=== PATIENT | male | born 1995 | race Two or more races ===

== ENCOUNTER 2018-08-10 11:45 | Emergency (ER) | payer OTHER ==
[2018-08-10 11:57] VITALS: BP 139/78
--- NOTE | 2018-08-10 11:57 | UC ---
Throat Pain/Nasal Maged HPI - HPI Summary HPI Summary: 22 yo male presents with sore throat and productive cough for the last 4-5 days. He says that he felt feverish one of the days, but did not take his temperature. He has not been taking anything OTC for his symptoms. He is traveling to [place] in a few days and is concerned that he will get others sick on the plane. Currently denies fever, chills, sinus symptoms, SOB, chest pain, n/v. - History of Current Complaint Stated Complaint: COUGH, AND SORE THROAT Time Seen by Provider: 08/10/18 11:57 Hx Obtained From: Patient Onset/Duration: Gradual Onset Severity: Moderate Pain Intensity: 7 Pain Scale Used: 0-10 Numeric - Allergies/Home Medications Allergies/Adverse Reactions: Allergies Allergy/AdvReac Type Severity Reaction Status Date / Time No Known Allergies Allergy Verified 08/10/18 11:57 PMH/Surg Hx/FS Hx/Imm Hx - Additional Past Medical History Additional PMH: None - Surgical History Surgical History: None - Family History Known Family History: Positive: None - Social History Occupation: Student Lives: With Family Alcohol Use: Occasionally Substance Use Type: None Smoking Status (MU): Never Smoked Tobacco Review of Systems All Other Systems Reviewed And Are Negative: Yes Constitutional: Positive: Negative Skin: Positive: Negative Eyes: Positive: Negative ENT: Positive: Sore Throat Respiratory: Positive: Cough Cardiovascular: Positive: Negative Gastrointestinal: Positive: Negative Neurovascular: Positive: Negative Neurological: Positive: Negative Psychological: Positive: Negative Physical Exam - Summary Physical Exam Summary: GENERAL: NAD. WDWN. No pain distress. SKIN: No rashes, sores, lesions, or open wounds. HEENT: Head: AT/NC Eyes: Conjunctiva clear without inflammation or discharge. Ears: Hearing grossly normal. TMs intact, no bulging, erythema, or edema. Nose: Nasal mucosa pink and moist. NTTP maxillary and frontal sinus. Throat: Posterior oropharynx mild erythema. No tonsillar enlargement. No exudates. Uvula midline. No hoarse voice or muffled voice. NECK: Supple. Nontender. No lymphadenopathy. CHEST: CTAB. No r/r/w. No accessory muscle use. Breathing comfortably and in no distress. CV: RRR. Without m/r/g. Pulses intact. Cap refill <2seconds NEURO: Alert. PSYCH: Age appropriate behavior. Triage Information Reviewed: Yes Vital Signs: Vital Signs: Temp Pulse Resp BP Pulse Ox 98 F 81 14 139/78 100 08/10/18 11:49 08/10/18 11:49 08/10/18 11:49 08/10/18 11:49 08/10/18 11:49 Vital Signs Reviewed: Yes Throat Pain/Nasal Course/Dx - Course Course Of Treatment: Pharyngitis. - Differential Dx/Diagnosis Provider Diagnoses: Pharyngitis. Cough Discharge - Sign-Out/Discharge Documenting (check all that apply): Patient Departure All imaging exams completed and their final reports reviewed: No Studies - Discharge Plan Condition: Stable Disposition: HOME Prescriptions: Azithromycin TAB* [Zithromax TAB (Z-MICHI) 250 mg #6 tabs] 2 tab PO .TODAY, THEN 1 DAILY #1 michi Patient Education Materials: Pharyngitis (ED) Referrals: Charlette Hendrickson MD [Primary Care Provider] - Additional Instructions: If you develop a fever, shortness of breath, chest pain, new or worsening symptoms - please call your PCP or go to the ED. Your blood pressure was mildly elevated at todays visit. Please see your primary provider within 4 weeks for recheck and re-evaluation. - Billing Disposition and Condition Condition: STABLE Disposition: Home
== END 2018-08-10 12:11 | disposition home or self-care (01) ==
LOC: UCEAST 11:45
DX: J02.9 Acute pharyngitis, unspecified (principal); R05 Cough
CPT/HCPCS: 99202; G0463

== ENCOUNTER 2018-09-09 23:28 | Emergency (ER) | payer OTHER ==
[2018-09-09] MEDS ORDERED: Ibuprofen TAB* 400 MG PO ONE (23:57)
--- NOTE | 2018-09-10 00:01 | ED ---
Lower Extremity - HPI Summary HPI Summary: This patient is a 22 year old male presenting to [facility] with a chief complaint of left toe injury since 1600 today. Patient states he stubbed his left 5th toe on a piece of furniture. The pain is rated 10/10 in severity. Symptoms aggravated by nothing. Symptoms alleviated by nothing. Patient has not put any ice on the toe. Patient denies any other medical problems. - History of Current Complaint Stated Complaint: LT SMALL TOE INJURY Hx Obtained From: Patient Mechanism Of Injury: Blunt Trauma Onset of Pain: Immediate Onset/Duration: Hours Pain Intensity: 10 Pain Scale Used: 0-10 Numeric Timing: Constant Location: Is Discrete @ - left 5th toe Aggravating Factor(s): Nothing Alleviating Factor(s): Nothing - Allergies/Home Medications Allergies/Adverse Reactions: Allergies Allergy/AdvReac Type Severity Reaction Status Date / Time No Known Allergies Allergy Verified 08/10/18 11:57 PMH/Surg Hx/FS Hx/Imm Hx Previously Healthy: Yes Opthamlomology History: Denies: Hx Legally Blind EENT History: Denies: Hx Deafness Infectious Disease History: No Infectious Disease History: Denies: Traveled Outside the [place] in Last 30 Days - Family History Known Family History: Positive: Hypertension - Social History Occupation: Student Alcohol Use: Occasionally Hx Substance Use: No Substance Use Type: Reports: None Hx Tobacco Use: No Smoking Status (MU): Never Smoked Tobacco Review of Systems Negative: Fever Positive: Other - left 5th toe injury All Other Systems Reviewed And Are Negative: Yes Physical Exam - Summary Physical Exam Summary: VITAL SIGNS: Reviewed. GENERAL: Patient is a well-developed and nourished male who is lying comfortable in the stretcher. Patient is not in any acute respiratory distress. HEAD AND FACE: No signs of trauma. No ecchymosis, hematomas or skull depressions. No sinus tenderness. EYES: PERRLA, EOMI x 2, No injected conjunctiva, no nystagmus. EARS: Hearing grossly intact. Ear canals and tympanic membranes are within normal limits. MOUTH: Oropharynx within normal limits. NECK: Supple, trachea is midline, no adenopathy, no JVD, no carotid bruit, no c- spine tenderness, neck with full ROM. CHEST: Symmetric, no tenderness at palpation LUNGS: Clear to auscultation bilaterally. No wheezing or crackles. CVS: Regular rate and rhythm, S1 and S2 present, no murmurs or gallops appreciated. ABDOMEN: Soft, non-tender. No signs of distention. No rebound no guarding, and no masses palpated. Bowel sounds are normal. EXTREMITIES: FROM in all major joints, Left 5th toe has ecchymosis, tenderness NEURO: Alert and oriented x 3. No acute neurological deficits. Speech is normal and follows commands. SKIN: Dry and warm Triage Information Reviewed: Yes Vital Signs On Initial Exam: Initial Vitals Temp Pulse Resp BP Pulse Ox 98.2 F 82 16 146/64 97 09/09/18 23:30 09/09/18 23:30 09/09/18 23:30 09/09/18 23:30 09/09/18 23:30 Vital Signs Reviewed: Yes Diagnostics - Vital Signs Vital Signs Temp Pulse Resp BP Pulse Ox 09/09/18 23:30 98.2 F 82 16 146/64 97 - Laboratory Lab Statement: Any lab studies that have been ordered have been reviewed, and results considered in the medical decision making process. - Radiology Foot XR Radiology Interpretation Completed By: ED Physician Summary of Radiographic Findings: Foot XR reveals no acute process. Pending official report. Lower Extremity Course/Dx - Course Assessment/Plan: This patient is a 22 year old male presenting to [facility] with a chief complaint of left toe injury since 1600 today. Patient states he stubbed his left 5th toe on a piece of furniture. Foot XR reveals no acute process. Pending official report. Patient will be discharged with a dx of toe contusion. Patient is advised to follow up with PCP in 2 days. The patient is agreeable with this plan. - Diagnoses Provider Diagnoses: Toe contusion Discharge - Sign-Out/Discharge Documenting (check all that apply): Patient Departure - Discharge Plan Condition: Stable Disposition: HOME Patient Education Materials: Foot Contusion (ED) Referrals: Charlette Hendrickson MD [Primary Care Provider] - 2 Days Additional Instructions: Return to the ED for any new or worsening symptoms. - Attestation Statements Document Initiated by Scribe: Yes Documenting Scribe: Kailey White Provider For Whom Brandon is Documenting (Include Credential): Marzena Bourne MD Scribe Attestation: Kailey Ellison scribed for Marzena Bourne MD on 09/10/18 at 0028. Status of Scribe Document: Ready
[2018-09-10 00:57] VITALS: BP 146/60
== END 2018-09-10 00:56 | disposition home or self-care (01) ==
LOC: ED 23:28
DX: S90.122A Contusion of left lesser toe(s) without damage to nail, initial encounter (principal); W22.8XXA Striking against or struck by other objects, initial encounter; Y92.9 Unspecified place or not applicable
CPT/HCPCS: 99282; A9270-GY